=== PATIENT | male | born 1955 | race Caucasian/White ===

== ENCOUNTER 2017-03-17 14:31 | Emergency (ER) | payer SELFPAY ==
[2017-03-17 14:34] VITALS: BMI 25.5
[2017-03-17] MEDS ORDERED: ADACEL TDaP IM ONE ×2 (14:36→14:53)
[2017-03-17] MEDS ORDERED: NS 1000 ML 1,000 ML IV ONE (14:46)
[2017-03-17] MEDS ORDERED: ANCEF VIAL 1 GM IV ONE (14:47)
--- NOTE | 2017-03-17 14:49 | DR.GENAD ---
HPI - PCP Primary Care Physician: NFD - HPI Comment HPI Comment: RT 5TH FINGER AMPUTATION SUSTAIN BEFORE COMING.TD NOT UTD. REST HISTORY BELOW. - Complaint/Symptoms Chief Complaint Doctors Comments: RT 5TH FINGER AMPUTATION. Chief Complaint:: PT C/O RT 5TH DIGIT HAS BEEN RIPPED OFF BY A BELT ON THE COMPRESSOR. PT HAS BROUGHT THE REST OF HIS FINGER WITH HIM. - Nurses notes reviewed Nurses Notes Review: Yes - Source History Provided: Patient - Mode of Arrival Mode of Arrival: Ambulatory - Timing Onset of Chief Complaint: 03/17/17 Came on: Suddenly - Duration Duration: Constant Duration: Hours - Severity Severity: Moderate PMH - PMH Past Medical History: No Past Surgical History: Yes Surgical History: Appendectomy - Family History History of Family Medical Conditions: No - Social History Does any household member use tobacco: No Alcohol Use: None Do you use any recreational Drugs:: No Lives With: Family Lives Where: Home - infectious screening In the last 2 months have you had wt loss of >10#?: NO Have you had fever, night sweats or hemotysis?: No Have you traveled outside the country in the last 6 months?: No Isolation: Standard ROS - Review of Systems Constitutional: No Symptoms Reported Eyes: No Symptoms Reported ENTM: No Symptoms Reported Respiratoy: No Symptoms Reported Cardiovascular: No Symptoms Reported Gastrointestinal/Abdominal: No Symptoms Reported Genitourinary: No Symptoms Reported Neurological: No Symptoms Reported Musculoskeletal: No Symptoms Reported Integumentary: Other (AMPUTATION DISTAL 5TH RT FINGER.) Hematologic/Lymphatic: No Symptoms Reported Endocrine: No Symptoms Reported All Other Systems: Reviewed and Negative PE - Vital Signs Vitals: Temperature 98.0 F Pulse Rate 74 Respiratory Rate 18 Blood Pressure 156/96 O2 Sat by Pulse Oximetry 97 - General Limitations: No Limitations General Appearance: Alert - Head Head Exam: Normal Inspection - Eyes Eye exam: Normal Appearance - ENT ENT Exam: Normal External Ear Exam TM/Canal Exam: Bilateral Normal Nose Exam: Normal Nose Exam Mouth Exam: Normal Inspection Throat Exam: Normal Inspection - Neck Neck Exam: Normal Inspection - Chest Chest Inspection: Symmetric Chest Wall Rise - Respiratory Respiratory Exam: Normal Lung Sounds Bilat Respiratory Exam: Bilateral Clear to Auscultation - Cardiovascular Cardiovascular Exam: Regular Rate, Normal Rhythm, Normal Heart Sounds - Abdominal Exam Abdominal Exam: Normal Bowel Sounds, Soft. negative: Tenderness - Extremities Extremities Exam: Tenderness (DISTAL RT 5TH FINGER AMPUTATION) - Back Back Exam: Normal Inspection - Neurologic Neurological Exam: Alert, Oriented X3 - Psychiatric Psychiatric Exam: Normal Affect, Normal Mood - Skin Skin Exam: Erythema MDM - Additional Information Additional Information Obtained From: Family - Differential Diagnosis Differential Diagnosis: AMPUTATION RT 5TH FINGER, FRACTURE RT 5TH FINGER. Course - Treatment Treatment: SEE ORDERS. - Consultation Consultation Comments: DISCUSS PATIENT WITH DR. HADLEY. HE IS IN ED EVALUATING PATIENT. HE WILL TAKE TO OR TO REPAIR INJURY. - Education/Counseling Education/Counseling: Patient, Family, Education Educated On: Diagnosis ROR - Labs Reviewed Laboratory Results Reviewed?: Yes Result Diagrams: 03/17/17 16:13 03/17/17 16:13 Laboratory: 03/17/17 18:54 Finger - Right Pinky Gram Stain - Final 03/17/17 18:54 Finger - Right Pinky Wound Culture - Final WBC 7.6 X10^3/uL (3.6-10.0) 03/17/17 16:13 RBC 4.59 X10^6/uL (4.7-6.0) L 03/17/17 16:13 Hgb 13.7 g/dL (13.5-18.0) 03/17/17 16:13 Hct 39.3 % (42.0-54.0) L 03/17/17 16:13 MCV 85.6 fL (80.0-100.0) 03/17/17 16:13 MCH 29.9 pg (27.0-34.0) 03/17/17 16:13 MCHC 34.9 g/dL (33.0-35.0) 03/17/17 16:13 RDW 13.4 % (11.6-16.5) 03/17/17 16:13 Plt Count 248 X10^3/uL (150.0-450.0) 03/17/17 16:13 MPV 7.5 fL (7.4-11.0) 03/17/17 16:13 Neut % 74.0 % (42.0-75.0) 03/17/17 16:13 Lymph % 12.1 % (21.0-51.0) L 03/17/17 16:13 [place] % 9.8 % (0.0-13.0) 03/17/17 16:13 Eos % 3.7 % (0.9-2.9) H 03/17/17 16:13 Baso % 0.4 % (0.2-1.0) 03/17/17 16:13 Neut # 5.7 x10^3/uL (2.2-4.8) H 03/17/17 16:13 Lymph # 0.9 X10^3/uL (1.3-2.9) L 03/17/17 16:13 [place] # 0.7 x10^3/uL (0.3-0.8) 03/17/17 16:13 Eos # 0.3 x10^3/uL (0.0-0.2) H 03/17/17 16:13 Baso # 0.0 X10^3/uL (0.0-0.1) 03/17/17 16:13 Absolute Nucleated RBC 0.0 /100WBC 03/17/17 16:13 Sodium 138 mmol/L (136-145) 03/17/17 16:13 Corrected Sodium TNP 03/17/17 16:13 Potassium 3.7 mmol/L (3.5-5.1) 03/17/17 16:13 Chloride 106 mmol/L (98-107) 03/17/17 16:13 Carbon Dioxide 23.8 mmol/L (21-32) 03/17/17 16:13 BUN 18 mg/dL (7-18) 03/17/17 16:13 Creatinine 0.78 mg/dL (0.70-1.30) 03/17/17 16:13 Est GFR (MDRD) Af Amer > 60 (>60) 03/17/17 16:13 Est GFR (MDRD) Non-Af > 60 (>60) 03/17/17 16:13 Glucose 100 mg/dL (65-99) H 03/17/17 16:13 Calcium 8.6 mg/dL (8.5-10.1) 03/17/17 16:13 Corrected Calcium TNP 03/17/17 16:13 Total Bilirubin 0.40 mg/dL (0.2-1.0) 03/17/17 16:13 AST 14 Units/L (15-37) L 03/17/17 16:13 ALT 27 Units/L (12-78) 03/17/17 16:13 Alkaline Phosphatase 60 Units/L (46-116) 03/17/17 16:13 Total Protein 6.9 g/dL (6.4-8.2) 03/17/17 16:13 Albumin 3.6 g/dL (3.4-5.0) 03/17/17 16:13 Globulin 3.3 g/dL (2.5-4.5) 03/17/17 16:13 Albumin/Globulin Ratio 1.1 Ratio (1.1-2.1) 03/17/17 16:13 - XRAY XRAY Interpreted by: Radiologist XRAY Findings: REPORT DISCUSS WITH PATIENT AND . - EKG Rhythm: NSR (EKG NOTED) - Diagnosis Discharge Problem: Finger near amputation, right Open fracture of finger Qualifiers: Encounter type: initial encounter Finger: little finger Phalanx: distal Fracture alignment: displaced Laterality: right Qualified Code(s): S62.636B - Displaced fracture of distal phalanx of right little finger, initial encounter for open fracture - Discharge Plan Disposition: XFER OTHER Condition: Stable - Follow ups/Referrals Follow ups/Referrals: NFD,None [STAFF PHYSICIAN] - 3 days - Instructions Instructions: Incision Care, Bcap-iy-Txae Additional Instructions: RETURN TO DR. HADLEY ON TUESDAY LEAVE DRESSING INTACT. KEEP DRESSING CLEAN AND DRY. TAKE PAIN MEDS DIRECTED TAKE ANTIBIOTICS DIRECTED.
[2017-03-17] MEDS ORDERED: NS 1000 ML 1,000 ML ONE ×2 (15:04→16:45)
[2017-03-17] MEDS ORDERED: NS 50 ML IV + SPIKE MINIBAG* 50 ML IV ONE (15:06)
[2017-03-17] MEDS ORDERED: ANCEF VIAL 1 GM ONE (15:06)
[2017-03-17] MEDS ORDERED: ZOFRAN INJ 4 MG VIAL ONE (15:08)
[2017-03-17] MEDS ORDERED: MORPHINE SULFATE INJ 4 MG ONE (15:09)
[2017-03-17] MEDS ORDERED: ZOFRAN INJ 4 MG VIAL IVP ONE (15:37)
[2017-03-17] MEDS ORDERED: MORPHINE SULFATE INJ 4 MG IVP ONE (15:37)
--- NOTE | 2017-03-17 15:45 | RAD ---
Right hand 3 views Indication: Right little finger laceration. Findings: There is metal foreign body adjacent to the thumb proximal phalanx. Amputation of the tip o f the right little finger noted, with portion of the phalangeal tuft amputated and fracture of the di stal aspect of the phalanx as well. Remaining bones are intact. Impression: Laceration partial amputation of the right little finger tip, with a piece of the phalang eal tuft AP dated. There is also fracture of the distal phalanx, minimally displaced. Reported By:
[2017-03-17 16:22] LABS: BASOPHILS % (AUTO) 0.4 % (0.2-1.0); EOSINOPHILS # (AUTO) 0.3 x10^3/uL (0.0-0.2); EOSINOPHILS % (AUTO) 3.7 % (0.9-2.9); HEMATOCRIT 39.3 % (42.0-54.0); HEMOGLOBIN 13.7 g/dL (13.5-18.0); LYMPHOCYTES # (AUTO) 0.9 X10^3/uL (1.3-2.9); LYMPHOCYTES % (AUTO) 12.1 % (21.0-51.0); MEAN CORPUSCULAR HEMOGLOBIN 29.9 pg (27.0-34.0); MEAN CORPUSCULAR HGB CONC 34.9 g/dL (33.0-35.0); MEAN CORPUSCULAR VOLUME 85.6 fL (80.0-100.0); MEAN PLATELET VOLUME 7.5 fL (7.4-11.0); MONOCYTES # (AUTO) 0.7 x10^3/uL (0.3-0.8); MONOCYTES % (AUTO) 9.8 % (0.0-13.0); NEUTROPHILS # (AUTO) 5.7 x10^3/uL (2.2-4.8); PLATELET COUNT 248 X10^3/uL (150.0-450.0); RED BLOOD COUNT 4.59 X10^6/uL (4.7-6.0); RED CELL DISTRIBUTION WIDTH 13.4 % (11.6-16.5); WHITE BLOOD COUNT 7.6 X10^3/uL (3.6-10.0)
[2017-03-17 16:32] LABS: ALANINE AMINOTRANSFERASE 27 Units/L (12-78); ALBUMIN 3.6 g/dL (3.4-5.0); ALKALINE PHOSPHATASE 60 Units/L (46-116); ASPARTATE AMINO TRANSFERASE 14 Units/L (15-37); BLOOD UREA NITROGEN 18 mg/dL (7-18); CALCIUM 8.6 mg/dL (8.5-10.1); CARBON DIOXIDE 23.8 mmol/L (21-32); CHLORIDE 106 mmol/L (98-107); CREATININE 0.78 mg/dL (0.70-1.30); SODIUM 138 mmol/L (136-145); TOTAL PROTEIN 6.9 g/dL (6.4-8.2); eGFR BLACK RACES > 60 (>60); eGFR NON BLACK RACES > 60 (>60)
[2017-03-17] MEDS ORDERED: BACTROBAN OINT ONE (16:34)
[2017-03-17] MEDS ORDERED: BACITRACIN VIAL ONE (16:34)
--- NOTE | 2017-03-17 16:40 | RAD ---
HISTORY: Preop finger repair Study: AP upright chest Comparison: None Findings: The heart is enlarged. No congestive heart failure is noted. No acute alveolar infiltrates or pleural effusions are identified. There is minimal subsegmental atelectasis in the right lung base. IMPRESSION: Cardiomegaly without congestive heart failure Minimal subsegmental atelectasis right lung base Reported By:
[2017-03-17] MEDS ORDERED: XYLOCAINE 2 % (PLAIN) ONE (17:01)
[2017-03-17] MEDS ORDERED: MARCAINE 0.25% INJ ONE (17:01)
[2017-03-17] MEDS ORDERED: NS IRRIGATION 1000 ML 1,000 ML with BACITRACIN VIAL 50,000 UNT IR ONE ×2 (17:40)
[2017-03-17] MEDS ORDERED: PERCOCET TAB 5/325 MG PO PRN (18:25)
[2017-03-17] MEDS ORDERED: ZOFRAN INJ 4 MG VIAL IVP PRN (18:25)
[2017-03-17 19:05] VITALS: BP 156/96
== END 2017-03-17 17:30 | disposition short-term general hospital (02) ==
LOC: ER 14:47
PROC: 0X6V0Z0 Detachment at Right Little Finger, Complete, Open Approach (ICD-10-PCS; principal; 2017-03-17 16:30)
DX: S68.616A Complete traumatic transphalangeal amputation of right little finger, initial encounter (principal); S62.636B Displaced fracture of distal phalanx of right little finger, initial encounter for open fracture; W45.8XXA Other foreign body or object entering through skin, initial encounter; Y92.9 Unspecified place or not applicable
CPT/HCPCS: 36415; 71010; 73130; 80053; 85025; 87070; 87075; 87205; 90471; 93005; 93010; 96365; 96374; 96375; 99283; A4222; S0020; J0690; J2001; J2270; J2405

== ENCOUNTER 2025-02-04 16:27 | Inpatient (IN) ==
[2025-02-04] MEDS: ASPIRIN PO ONE (16:48)
[2025-02-04] MEDS: CARDIZEM INJ 50 MG VIAL IVP ONE ×3 (16:50→17:00)
--- NOTE | 2025-02-04 16:50 | EKG ---
Test Reason : afib Blood Pressure : */* mmHG Vent. Rate : 144 BPM Atrial Rate : * BPM P-R Int : * ms QRS Dur : 78 ms QT Int : 300 ms P-R-T Axes : * -45 53 degrees QTc Int : 464 ms Atrial fibrillation with rapid ventricular response Left axis deviation Anterior infarct , age undetermined Abnormal ECG No previous ECGs available Confirmed by Pascual Redding MD ([id number]) on 02/05/2025 11:52:57 AM Referred By: Confirmed By: Pascual Redding MD
[2025-02-04] MEDS ORDERED: NS 1,000 ML IV 1,000 ML ONE (16:55)
[2025-02-04] MEDS: NS 1,000 ML IV 1,000 ML IV ONE (17:00)
[2025-02-04 17:02] LABS: MEAN PLATELET VOLUME 9.1 fL (7.4-11.0); RED CELL DISTRIBUTION WIDTH 13.9 % (11.6-16.5)
[2025-02-04] MEDS: LOPRESSOR INJ 5 MG AMP IVP ONE (17:13)
[2025-02-04 17:14] LABS: COR NA(FOR HYPERGLY) 139 mmol/L (136-145); CREATININE 0.75 mg/dL (0.70-1.30); eGFR NON BLACK RACES > 60 (>60)
[2025-02-04 17:22] LABS: INR 1.04 (0.8-1.3)
--- NOTE | 2025-02-04 17:44 | DR.CP ---
HPI Time Seen Time Seen by Provider: 02/04/25 17:37 PCP Primary Care Physician: Velasquez HPI Comment HPI Comment: Patient went to his PCP, Dr. Eng, today due to shortness of breath coughing since yesterday. Patient states that feeling is difficult to describe. Denies pain. Described palpitations at this time. Patient had EKG in office that revealed A-fib with RVR and was sent to the ER. Complaint Chief Complaint:: Patient states he went to his MD because coughing and SOB onset yesterday. He denies pain. His EKG at MD office revealed Afib with RVR. COVID-19 Coronavirus risk:travel/contact w/high risk person: No Has patient experienced Coronavirus symptoms: No Source History Provided: Patient and Significant Other Mode of Arrival Mode of Arrival: Ambulatory Timing Onset of Chief Complaint: 02/03/25 PMH PMH Past Medical History: Yes Past Medical History: Hypertension Past Medical History Comment: Atrial Flutter Past Surgical History: Yes Surgical History: Appendectomy and Other Family History History of Family Medical Conditions: Yes Family Medical History: Diabetes Mellitus, Coronary Artery Disease and Hypertension Social History Does patient currently use any type of tobacco product: No Have you used tobacco products in the last 12 months: No Type of Tobacco Use: None Does any household member use tobacco: No Alcohol Use: None Do you use any recreational Drugs:: No Lives With: Spouse Lives Where: Home Travel Risk Coronavirus risk:travel/contact w/high risk person: No Has patient experienced Coronavirus symptoms: No Infectious screening In the last 2 months have you had wt loss of >10#?: NO Have you had fever, night sweats or hemotysis?: No Have you traveled outside the country in the last 6 months?: No Isolation: Standard ROS Review of Systems Constitutional: No Symptoms Reported Eyes: No Symptoms Reported ENTM: No Symptoms Reported Respiratoy: No Symptoms Reported and Non-Productive Cough; negative Short of Breath or Wheezing Cardiovascular: See HPI and Palpitations; negative Chest Pain, Edema or Syncope Gastrointestinal/Abdominal: No Symptoms Reported Genitourinary: No Symptoms Reported Neurological: No Symptoms Reported; negative Headache, Numbness, Paresthesia, Seizure, Tingling, Weakness, Dizziness, Problems Walking or Speech Problem Musculoskeletal: No Symptoms Reported Integumentary: No Symptoms Reported Hematologic/Lymphatic: No Symptoms Reported Endocrine: No Symptoms Reported Psychiatric: No Symptoms Reported All Other Systems: Reviewed and Negative PE Vitals Vitals: Vital Signs Temperature 98.8 F Pulse Rate 143 Pulse Rate 130 Pulse Rate 146 Pulse Rate 133 Pulse Rate 147 Pulse Rate 149 Pulse Rate 149 Pulse Rate 135 Pulse Rate 150 Pulse Rate 152 Pulse Rate 146 Pulse Rate 144 Pulse Rate 133 Pulse Rate 144 Pulse Rate 142 Pulse Rate 148 Pulse Rate 137 Pulse Rate 139 Pulse Rate 142 Pulse Rate 150 Pulse Rate 140 Pulse Rate 137 Pulse Rate 128 Pulse Rate 143 Pulse Rate 146 Pulse Rate 138 Pulse Rate 139 Pulse Rate 132 Pulse Rate 132 Pulse Rate 135 Pulse Rate 131 Pulse Rate 132 Pulse Rate 141 Pulse Rate 120 Pulse Rate 133 Pulse Rate 138 Pulse Rate 150 Pulse Rate 152 Pulse Rate 157 Pulse Rate 152 Pulse Rate 152 Pulse Rate 153 Pulse Rate 161 Pulse Rate 171 Pulse Rate 167 Respiratory Rate 30 Respiratory Rate 35 Respiratory Rate 35 Respiratory Rate 36 Respiratory Rate 38 Respiratory Rate 32 Respiratory Rate 41 Respiratory Rate 30 Respiratory Rate 33 Respiratory Rate 32 Respiratory Rate 41 Respiratory Rate 35 Respiratory Rate 32 Respiratory Rate 37 Respiratory Rate 29 Respiratory Rate 34 Respiratory Rate 31 Respiratory Rate 33 Respiratory Rate 38 Respiratory Rate 31 Respiratory Rate 38 Respiratory Rate 37 Respiratory Rate 35 Respiratory Rate 32 Respiratory Rate 32 Respiratory Rate 32 Respiratory Rate 32 Respiratory Rate 31 Respiratory Rate 37 Respiratory Rate 48 Respiratory Rate 33 Respiratory Rate 27 Respiratory Rate 34 Respiratory Rate 33 Respiratory Rate 34 Respiratory Rate 39 Respiratory Rate 33 Respiratory Rate 33 Respiratory Rate 33 Respiratory Rate 16 Respiratory Rate 31 Respiratory Rate 16 Blood Pressure 91/73 Blood Pressure 109/78 Blood Pressure 94/61 Blood Pressure 114/75 Blood Pressure 134/79 Blood Pressure 138/70 Blood Pressure 108/80 Blood Pressure 114/69 Blood Pressure 113/89 Blood Pressure 104/80 Blood Pressure 102/87 Blood Pressure 107/85 Blood Pressure 117/94 Blood Pressure 146/82 Blood Pressure 113/86 Blood Pressure 89/67 Blood Pressure 99/79 Blood Pressure 116/75 Blood Pressure 121/81 Blood Pressure 125/90 Blood Pressure 110/80 Blood Pressure 109/86 Blood Pressure 118/95 Blood Pressure 116/91 Blood Pressure 108/80 Blood Pressure 140/85 Blood Pressure 140/85 Blood Pressure 142/94 Blood Pressure 138/100 Blood Pressure 129/87 Blood Pressure 149/109 Blood Pressure 149/109 O2 Sat by Pulse Oximetry 93 O2 Sat by Pulse Oximetry 95 O2 Sat by Pulse Oximetry 90 O2 Sat by Pulse Oximetry 90 O2 Sat by Pulse Oximetry 90 O2 Sat by Pulse Oximetry 91 O2 Sat by Pulse Oximetry 92 O2 Sat by Pulse Oximetry 87 O2 Sat by Pulse Oximetry 92 O2 Sat by Pulse Oximetry 97 O2 Sat by Pulse Oximetry 94 O2 Sat by Pulse Oximetry 93 O2 Sat by Pulse Oximetry 88 O2 Sat by Pulse Oximetry 91 O2 Sat by Pulse Oximetry 91 O2 Sat by Pulse Oximetry 93 O2 Sat by Pulse Oximetry 94 O2 Sat by Pulse Oximetry 93 O2 Sat by Pulse Oximetry 94 O2 Sat by Pulse Oximetry 93 O2 Sat by Pulse Oximetry 92 O2 Sat by Pulse Oximetry 93 O2 Sat by Pulse Oximetry 91 O2 Sat by Pulse Oximetry 95 O2 Sat by Pulse Oximetry 95 O2 Sat by Pulse Oximetry 96 O2 Sat by Pulse Oximetry 99 O2 Sat by Pulse Oximetry 94 O2 Sat by Pulse Oximetry 96 O2 Sat by Pulse Oximetry 98 O2 Sat by Pulse Oximetry 91 O2 Sat by Pulse Oximetry 93 O2 Sat by Pulse Oximetry 95 O2 Sat by Pulse Oximetry 98 O2 Sat by Pulse Oximetry 93 O2 Sat by Pulse Oximetry 93 O2 Sat by Pulse Oximetry 93 O2 Sat by Pulse Oximetry 91 O2 Sat by Pulse Oximetry 92 O2 Sat by Pulse Oximetry 89 O2 Sat by Pulse Oximetry 93 O2 Sat by Pulse Oximetry 96 O2 Sat by Pulse Oximetry 95 O2 Sat by Pulse Oximetry 97 General Limitations: No Limitations General Appearance: Alert and In No Apparent Distress Head Head Exam: Normal Inspection Eyes Eye exam: Normal Appearance Chest Chest Inspection: Normal Inspection Respiratory Respiratory Exam: Normal Lung Sounds Bilat Cardiovascular Cardiovascular Exam: Tachycardia and Irregular Rhythm Edema: Normal Abdominal Exam Abdominal Exam: Normal Inspection, Normal Bowel Sounds and Soft Extremities Extremities Exam: Normal Inspection Back Back Exam: Normal Inspection Neurologic Neurological Exam: Alert and Oriented X3 Psychiatric Psychiatric Exam: Normal Affect and Normal Mood Skin Skin Exam: Warm, Dry, Intact and Normal Color COURSE Treatment Treatment: Patient's rate improved with Cardizem and Lopressor. Patient currently on Cardizem drip but had his blood pressure has gotten a little low so we are holding at current rate. Patient denies any shortness of breath. Patient states he feels well at this time. His rate does increase when he moves around too much or talks too much. Discussed need for admission and patient is agreeable Consultation Consultation Comments: Discussed case with Dr. Robbins and he is agreeable to admission. Critical Care Notes Total Time (mins): 72 Critical Diagnosis: A-fib with RVR Critical Interventions: 3 doses of Cardizem, 3 doses of Lopressor. IV fluids were administered. ROR Labs Reviewed Laboratory Results Reviewed?: Yes 02/04/25 16:49 02/04/25 16:49 Laboratory: WBC 8.5 X10^3/uL (3.6-10.0) 02/04/25 16:49 RBC 4.67 X10^6/uL (4.7-6.0) L 02/04/25 16:49 Hgb 13.3 g/dL (13.5-18.0) L 02/04/25 16:49 Hct 40.3 % (42.0-54.0) L 02/04/25 16:49 MCV 86.3 fL (80.0-100.0) 02/04/25 16:49 MCH 28.5 pg (27.0-34.0) 02/04/25 16:49 MCHC 33.0 g/dL (33.0-35.0) 02/04/25 16:49 RDW 13.9 % (11.6-16.5) 02/04/25 16:49 Plt Count 285 X10^3/uL (150.0-450.0) 02/04/25 16:49 MPV 9.1 fL (7.4-11.0) 02/04/25 16:49 Neut % (Auto) 64.7 % (42.0-75.0) 02/04/25 16:49 Lymph % (Auto) 21.0 % (21.0-51.0) 02/04/25 16:49 [place] % (Auto) 12.0 % (0.0-13.0) 02/04/25 16:49 Eos % (Auto) 1.6 % (0.9-2.9) 02/04/25 16:49 Baso % (Auto) 0.7 % (0.2-1.0) 02/04/25 16:49 Neut # (Auto) 5.5 x10^3/uL (2.2-4.8) H 02/04/25 16:49 Lymph # (Auto) 1.8 X10^3/uL (1.3-2.9) 02/04/25 16:49 [place] # (Auto) 1.0 x10^3/uL (0.3-0.8) H 02/04/25 16:49 Eos # (Auto) 0.1 x10^3/uL (0.0-0.2) 02/04/25 16:49 Baso # (Auto) 0.1 X10^3/uL (0.0-0.1) 02/04/25 16:49 Absolute Nucleated RBC 0.1 /100WBC 02/04/25 16:49 PT 13.7 SECONDS (11.8-14.3) 02/04/25 16:49 INR Target Range - 02/04/25 16:49 INR 1.04 (0.8-1.3) 02/04/25 16:49 Sodium 138 mmol/L (136-145) 02/04/25 16:49 Corrected Sodium 139 mmol/L (136-145) 02/04/25 16:49 Potassium 3.9 mmol/L (3.5-5.1) 02/04/25 16:49 Chloride 105 mmol/L (98-107) 02/04/25 16:49 Carbon Dioxide 25.4 mmol/L (21-32) 02/04/25 16:49 BUN 14 mg/dL (7-18) 02/04/25 16:49 Creatinine 0.75 mg/dL (0.70-1.30) 02/04/25 16:49 Est GFR (MDRD) Af Amer > 60 (>60) 02/04/25 16:49 Est GFR (MDRD) Non-Af > 60 (>60) 02/04/25 16:49 Glucose 122 mg/dL (65-99) H 02/04/25 16:49 Calcium 8.5 mg/dL (8.5-10.1) 02/04/25 16:49 Corrected Calcium TNP 02/04/25 16:49 Magnesium 2.0 mg/dL (2.0-2.9) 02/04/25 16:49 Total Bilirubin 0.70 mg/dL (0.2-1.0) 02/04/25 16:49 AST 31 Units/L (15-37) 02/04/25 16:49 ALT 73 Units/L (12-78) 02/04/25 16:49 Alkaline Phosphatase 82 Units/L (46-116) 02/04/25 16:49 Creatine Kinase 79 Units/L (39-308) 02/04/25 16:49 Troponin I High Sens 26.5 ng/L (4.0-60.0) 02/04/25 18:49 B-Natriuretic Peptide 209 pg/mL (0-79) H 02/04/25 16:49 Total Protein 7.3 g/dL (6.4-8.2) 02/04/25 16:49 Albumin 3.8 g/dL (3.4-5.0) 02/04/25 16:49 Globulin 3.5 g/dL (2.5-4.5) 02/04/25 16:49 Albumin/Globulin Ratio 1.1 Ratio (1.1-2.1) 02/04/25 16:49 XRAY X-ray Results: Name: CK GA JR : 1955 Sex: M Location: ER Order Number(s): [id number] Procedure(s):CHEST, 1 VIEW X-RAY Ordering Physician: Davey Enriquez Primary Care: Mark Eng Service Date: 02/04/25 Service Time: 164 EXAM: CHEST, 1 VIEW HISTORY: Patient states he went to his MD because coughing and SOB onset yesterday. He denies pain. His EKG at MD office revealed Afib with RVR.; COMPARISON: Chest radiograph from March 17, 2017 TECHNIQUE: Chest radiographic imaging, AP portable projection, 1 image FINDINGS: Mild cardiomegaly. Mild increased interstitial markings centered on the [place]. No focal airspace disease. No pleural effusion. No pneumothorax. No acute osseous abnormality. Small calcified nodule in the periphery of the left mid lung, as seen on the previous exam, consistent with the sequela of a previous granulomatous infection. IMPRESSION: Findings could represent acute cardiogenic edema. No focal consolidation. THIS IS AN ELECTRONICALLY VERIFIED FINAL REPORT 02/04/2025 8:27 PM - Electronically signed by Jose Luis Mina MD EKG Rate: 144 [place]: LAD Rhythm: Afib ST: Normal Opioid Opioid Risk Tool Age (Curry box if 16-45): No History of Preadolescent Sexual Abuse: No Total: 0 Total Score Risk Category: Low Risk Copyright: Vaibhav PRADO predicting aberrant behaviors Discharge Plan Diagnosis Discharge Problem: Atrial fibrillation with RVR Discharge Plan Patient Disposition: ADMITTED INPATIENT Condition: Stable Prescriptions: No Action amlodipine 5 mg tablet 5 mg PO QDAY Health Concerns: Post Hospitalization: new medications and changes needed to prevent readmission or further decline. Pt educated and given instructions on all concerns. Plan of Treatment: Continue with present treatment and follow up plan. Pt is to keep follow up appointment as instructed and take medications as ordered. Orders to Discharge Patient Discharge Orders: Transfer (Routine); Ordered 02/04/25 Ordered By: Davey Enriquez Follow ups/Referrals Follow ups/Referrals: Mark Eng [Primary Care Provider, MEDICAL] - 3 days Instructions Stand Alone Forms: Find Help Web Site, Post Hospital Follow Up Care Print Language: MACEDONIAN
[2025-02-04] MEDS: CARDIZEM INJ 125 MG VIAL 125 MG in NS 100 ML IV 100 ML IV PRN (18:16)
--- NOTE | 2025-02-04 20:30 | RAD ---
EXAM: CHEST, 1 VIEW HISTORY: Patient states he went to his MD because coughing and SOB onset yesterday. He denies pain. His EKG at MD office revealed Afib with RVR.; COMPARISON: Chest radiograph from March 17, 2017 TECHNIQUE: Chest radiographic imaging, AP portable projection, 1 image FINDINGS: Mild cardiomegaly. Mild increased interstitial markings centered on the [place]. No focal airspace disease. No pleural effusion. No pneumothorax. No acute osseous abnormality. Small calcified nodule in the periphery of the left mid lung, as seen on the previous exam, consistent with the sequela of a previous granulomatous infection. IMPRESSION: Findings could represent acute cardiogenic edema. No focal consolidation. THIS IS AN ELECTRONICALLY VERIFIED FINAL REPORT 02/04/2025 8:27 PM - Electronically signed by Jose Luis Mina MD
[2025-02-04] MEDS ORDERED: ULTRAM PO PRN (23:55)
[2025-02-04] MEDS ORDERED: ZOFRAN INJ 4 MG VIAL IVP PRN (23:55)
[2025-02-04] MEDS ORDERED: TYLENOL 325 MG TAB PO PRN (23:55)
[2025-02-04] MEDS ORDERED: MORPHINE SULFATE INJ 2 MG INJ IVP PRN (23:55)
[2025-02-04] MEDS ORDERED: NORCO 5/325 MG TAB PO PRN (23:55)
[2025-02-05 00:24] VITALS: BMI 26.1
[2025-02-05] MEDS: NS 1,000 ML IV 1,000 ML IV SCH (00:53)
[2025-02-05] MEDS: NS 1,000 ML IV 1,000 ML ONE (00:58)
[2025-02-05] MEDS: LOPRESSOR INJ 5 MG AMP ONE (05:15)
[2025-02-05] MEDS: CARDIZEM INJ 50 MG VIAL ONE (05:15)
[2025-02-05] MEDS: NS 100 ML IV 100 ML ONE (05:16)
[2025-02-05] MEDS: CARDIZEM INJ 125 MG VIAL ONE (05:16)
[2025-02-05] MEDS: CONSULT PHARMACY - POTASSIUM & MAGNESIUM XX SCH (05:17)
[2025-02-05 05:46] LABS: MEAN PLATELET VOLUME 9.2 fL (7.4-11.0); RED CELL DISTRIBUTION WIDTH 13.7 % (11.6-16.5)
[2025-02-05 06:06] LABS: COR CA(FOR HYPOALB) 8.8 mg/dL (8.5-10.1); CREATININE 0.65 mg/dL (0.70-1.30); eGFR NON BLACK RACES > 60 (>60)
--- NOTE | 2025-02-05 08:04 | EKG ---
Test Reason : Afib RVR Blood Pressure : */* mmHG Vent. Rate : 78 BPM Atrial Rate : * BPM P-R Int : * ms QRS Dur : 76 ms QT Int : 388 ms P-R-T Axes : * -44 78 degrees QTc Int : 442 ms Atrial fibrillation with premature ventricular or aberrantly conducted complexes Left axis deviation Low voltage QRS Inferior infarct , age undetermined Cannot rule out Anterior infarct (cited on or before 04-FEB-2025) Abnormal ECG When compared with ECG of 04-FEB-2025 16:45, (Unconfirmed) Vent. rate has decreased BY 66 BPM Nonspecific T wave abnormality, worse in Lateral leads Confirmed by Yan Christina ([id number]) on 02/05/2025 8:10:38 AM Referred By: Confirmed By: Yan Christina
[2025-02-05 08:41] VITALS: TEMP 97.6
[2025-02-05] MEDS: LOPRESSOR TAB 50 MG PO SCH (08:48)
[2025-02-05] MEDS: ELIQUIS PO SCH (08:48)
[2025-02-05 09:08] LABS: TSH (3RD GENERATION) 2.292 uIU/mL (0.358-3.74)
--- NOTE | 2025-02-05 10:06 | DR.H&P ---
H&P History & Physical for Day of: H&P Date: 02/05/25 Chief Complaint Chief Complaint: SOB History of Present Illness History of Present Illness: Patient is a 69-year-old male with a past medical history of hypertension, atrial flutter status post ablation presented with dyspnea and weakness. He was seen at primary care office and had an abnormal EKG concerning for atrial fibrillation with RVR. He was advised to go to the ER. ER workup included troponins x 2 negative BNP 209, heart rate in the 130s. He received multiple doses of metoprolol tartrate and diltiazem. He was placed on diltiazem drip and admitted for further management in the ICU. He also had hypotension. He is feeling better this morning. He is currently on 2 L nasal cannula. He reports having ablation done in [place] couple years ago. He did not follow-up with cardiology after the procedure. He denies any history of CAD. Labs/imaging reviewed: - WBC 7.8 hemoglobin 12 platelet 230 potassium 4.2 creatinine 0.65 BNP 209 Normal thyroid panel - Trope x 2 negative - Chest x-ray: Pulmonary edema Plan: Continue to monitor in ICU, wean diltiazem drip as per protocol. Continue metoprolol to tartrate 100 mg twice daily. Continue Eliquis. Consult cardiology. Order echo. Wean O2 as tolerated. Replace electrolytes as per protocol. Stop IV fluids. Monitor heart rate and blood pressure closely. Monitor a.m. labs and imaging. Time spent for clinical assessment, reviewing labs/imaging, physical exam, decision making and documentation greater than 45 mins. Past Medical History Past Medical History: Hypertension Past Surgical History Surgical History: Appendectomy and Other Family History Family Medical History: Diabetes Mellitus, Cancer and Hypertension Social History Does patient currently use any type of tobacco product: No Have you used tobacco products in the last 12 months: No Type of Tobacco Use: None Does any household member use tobacco: No Alcohol Use: None Drug Use: None Medications Home Medications: Home Medications Medication Instructions Recorded Confirmed Type amlodipine 5 mg tablet 5 mg PO QDAY 02/04/25 History Allergies Allergies Allergy/AdvReac Type Severity Reaction Status Date / Time No Known Drug Allergies Allergy Verified 03/17/17 14:36 Labs 02/05/25 04:28 02/05/25 04:28 Labs: Laboratory WBC 7.8 X10^3/uL (3.6-10.0) 02/05/25 04:28 RBC 4.17 X10^6/uL (4.7-6.0) L 02/05/25 04:28 Hgb 12.0 g/dL (13.5-18.0) L 02/05/25 04:28 Hct 35.8 % (42.0-54.0) L 02/05/25 04:28 MCV 85.6 fL (80.0-100.0) 02/05/25 04:28 MCH 28.6 pg (27.0-34.0) 02/05/25 04:28 MCHC 33.4 g/dL (33.0-35.0) 02/05/25 04: RDW 13.7 % (11.6-16.5) 02/05/25 04:28 Plt Count 230 X10^3/uL (150.0-450.0) 02/05/25 04:28 MPV 9.2 fL (7.4-11.0) 02/05/25 04:28 Neut % (Auto) 61.2 % (42.0-75.0) 02/05/25 04:28 Lymph % (Auto) 23.9 % (21.0-51.0) 02/05/25 04:28 [place] % (Auto) 11.3 % (0.0-13.0) 02/05/25 04:28 Eos % (Auto) 3.1 % (0.9-2.9) H 02/05/25 04:28 Baso % (Auto) 0.5 % (0.2-1.0) 02/05/25 04:28 Neut # (Auto) 4.8 x10^3/uL (2.2-4.8) 02/05/25 04:28 Lymph # (Auto) 1.9 X10^3/uL (1.3-2.9) 02/05/25 04:28 [place] # (Auto) 0.9 x10^3/uL (0.3-0.8) H 02/05/25 04:28 Eos # (Auto) 0.2 x10^3/uL (0.0-0.2) 02/05/25 04:28 Baso # (Auto) 0.0 X10^3/uL (0.0-0.1) 02/05/25 04:28 Absolute Nucleated RBC 0.1 /100WBC 02/05/25 04:28 PT 13.7 SECONDS (11.8-14.3) 02/04/25 16:49 INR Target Range - 02/04/25 16:49 INR 1.04 (0.8-1.3) 02/04/25 16:49 Sodium 137 mmol/L (136-145) 02/05/25 04:28 Corrected Sodium TNP 02/05/25 04:28 Potassium 4.2 mmol/L (3.5-5.1) 02/05/25 04:28 Chloride 107 mmol/L (98-107) 02/05/25 04:28 Carbon Dioxide 24.2 mmol/L (21-32) 02/05/25 04:28 BUN 14 mg/dL (7-18) 02/05/25 04:28 Creatinine 0.65 mg/dL (0.70-1.30) L 02/05/25 04:28 Est GFR (MDRD) Af Amer > 60 (>60) 02/05/25 04:28 Est GFR (MDRD) Non-Af > 60 (>60) 02/05/25 04:28 Glucose 105 mg/dL (65-99) H 02/05/25 04:28 Calcium 7.9 mg/dL (8.5-10.1) L 02/05/25 04:28 Corrected Calcium 8.8 mg/dL (8.5-10.1) 02/05/25 04:28 Magnesium 2.0 mg/dL (2.0-2.9) 02/04/25 16:49 Total Bilirubin 0.50 mg/dL (0.2-1.0) 02/05/25 04:28 AST 28 Units/L (15-37) 02/05/25 04:28 ALT 56 Units/L (12-78) 02/05/25 04:28 Alkaline Phosphatase 67 Units/L (46-116) 02/05/25 04:28 Creatine Kinase 79 Units/L (39-308) 02/04/25 16:49 Troponin I High Sens 26.5 ng/L (4.0-60.0) 02/04/25 18:49 B-Natriuretic Peptide 209 pg/mL (0-79) H 02/04/25 16:49 Total Protein 5.9 g/dL (6.4-8.2) L 02/05/25 04:28 Albumin 2.9 g/dL (3.4-5.0) L 02/05/25 04:28 Globulin 3.0 g/dL (2.5-4.5) 02/05/25 04:28 Albumin/Globulin Ratio 1.0 Ratio (1.1-2.1) L 02/05/25 04:28 Free T4 1.22 ng/dL (0.76-1.46) 02/05/25 04:28 TSH 3rd Generation 2.292 uIU/mL (0.358-3.74) 02/05/25 04:28 Review of Systems Constitutional: Weakness Eyes: No Symptoms Reported ENT: No Symptoms Reported Respiratory: Cough and SOB with Excertion Cardiovascular: Orthopnea Gastrointestinal: No Symptoms Reported Genitourinary: No Symptoms Reported Musculoskeletal: No Symptoms Reported Skin: No Symptoms Reported Neurological: No Symptoms Reported Physical Exam Vital Signs: Vital Signs Temperature 97.6 F Temperature 97.6 F Temperature 97.8 F Pulse Rate 78 Pulse Rate 97 Pulse Rate 105 Pulse Rate 123 Pulse Rate 102 Pulse Rate 125 Pulse Rate 128 Pulse Rate 94 Pulse Rate 85 Pulse Rate 92 Pulse Rate 148 Pulse Rate 134 Pulse Rate 102 Pulse Rate 122 Pulse Rate 111 Pulse Rate 111 Pulse Rate 102 Pulse Rate 117 Pulse Rate 112 Pulse Rate 130 Pulse Rate 133 Pulse Rate 130 Pulse Rate 100 Pulse Rate 131 Pulse Rate 107 Pulse Rate 99 Pulse Rate 106 Pulse Rate 99 Pulse Rate 98 Pulse Rate 96 Pulse Rate 87 Pulse Rate 100 Pulse Rate 100 Pulse Rate 125 Pulse Rate 111 Pulse Rate 119 Pulse Rate 115 Pulse Rate 126 Respiratory Rate 29 Respiratory Rate 31 Respiratory Rate 30 Respiratory Rate 33 Respiratory Rate 36 Respiratory Rate 31 Respiratory Rate 20 Respiratory Rate 21 Respiratory Rate 22 Respiratory Rate 39 Respiratory Rate 35 Respiratory Rate 31 Respiratory Rate 32 Respiratory Rate 24 Respiratory Rate 24 Respiratory Rate 31 Respiratory Rate 29 Respiratory Rate 37 Respiratory Rate 32 Respiratory Rate 33 Respiratory Rate 32 Respiratory Rate 33 Respiratory Rate 40 Respiratory Rate 23 Respiratory Rate 22 Respiratory Rate 22 Respiratory Rate 22 Respiratory Rate 22 Respiratory Rate 22 Respiratory Rate 25 Respiratory Rate 27 Respiratory Rate 27 Respiratory Rate 31 Respiratory Rate 31 Respiratory Rate 39 Respiratory Rate 28 Respiratory Rate 28 Blood Pressure 112/84 Blood Pressure 105/69 Blood Pressure 104/62 Blood Pressure 98/59 Blood Pressure 98/59 Blood Pressure 106/68 Blood Pressure 106/68 Blood Pressure 88/63 Blood Pressure 88/63 Blood Pressure 93/63 Blood Pressure 93/63 Blood Pressure 98/71 Blood Pressure 98/71 O2 Sat by Pulse Oximetry 85 O2 Sat by Pulse Oximetry 86 O2 Sat by Pulse Oximetry 84 O2 Sat by Pulse Oximetry 94 O2 Sat by Pulse Oximetry 94 O2 Sat by Pulse Oximetry 87 O2 Sat by Pulse Oximetry 91 O2 Sat by Pulse Oximetry 87 O2 Sat by Pulse Oximetry 88 O2 Sat by Pulse Oximetry 92 O2 Sat by Pulse Oximetry 92 O2 Sat by Pulse Oximetry 87 O2 Sat by Pulse Oximetry 88 O2 Sat by Pulse Oximetry 89 O2 Sat by Pulse Oximetry 93 O2 Sat by Pulse Oximetry 93 O2 Sat by Pulse Oximetry 91 O2 Sat by Pulse Oximetry 92 O2 Sat by Pulse Oximetry 89 O2 Sat by Pulse Oximetry 91 O2 Sat by Pulse Oximetry 92 O2 Sat by Pulse Oximetry 91 O2 Sat by Pulse Oximetry 94 O2 Sat by Pulse Oximetry 89 O2 Sat by Pulse Oximetry 92 O2 Sat by Pulse Oximetry 88 O2 Sat by Pulse Oximetry 88 O2 Sat by Pulse Oximetry 88 O2 Sat by Pulse Oximetry 90 O2 Sat by Pulse Oximetry 93 O2 Sat by Pulse Oximetry 96 O2 Sat by Pulse Oximetry 97 O2 Sat by Pulse Oximetry 97 O2 Sat by Pulse Oximetry 93 O2 Sat by Pulse Oximetry 92 O2 Sat by Pulse Oximetry 75 O2 Sat by Pulse Oximetry 90 O2 Sat by Pulse Oximetry 92 Oriented: Normal Respiratory: RLL Rales and LLL Rales Cardiovascular: Irregular Auscultation: Bowel Sounds: Normal Palpation: Normal Tenderness: Normal Skin: Normal Musculoskeletal: Normal Psychiatric: Normal Mood Description: Calm Affect: Normal Speech Pattern: Clear and Appropriate Assessment/Plan (1) Atrial fibrillation with RVR: Status: Acute (2) Pulmonary edema: Qualifiers: Chronicity: acute Qualified Code(s): J81.0 - Acute pulmonary edema Status: Acute (3) HTN (hypertension): Qualifiers: Hypertension type: primary hypertension Qualified Code(s): I10 - Essential (primary) hypertension Status: Chronic (4) Dyspnea: Qualifiers: Dyspnea type: orthopnea Qualified Code(s): R06.01 - Orthopnea Status: Acute Review H&P Reviewed: Yes Patient was examined?: Yes
[2025-02-05] MEDS ORDERED: LASIX ONE (11:29)
[2025-02-05] MEDS: LASIX IVP ONE (11:30)
[2025-02-05 12:11] VITALS: O2SAT 96
[2025-02-05 14:46] VITALS: BP 101/72; PULSE 103; RESP 32
--- NOTE | 2025-02-05 15:52 | RAD ---
EXAM: CHEST, 1 VIEW HISTORY: SOB, A FIB; COMPARISON: 02/04/2025 TECHNIQUE: AP portable FINDINGS: Stable prominent cardiac silhouette, accentuated by AP technique. Pulmonary vascular engorgement. Hazy perihilar opacities. Layering small pleural effusions. No visible pneumothorax. IMPRESSION: Pulmonary edema with layering small pleural effusions. THIS IS AN ELECTRONICALLY VERIFIED FINAL REPORT 02/05/2025 3:49 PM - Electronically signed by Valentín Decker MD
== END 2025-02-05 15:00 | disposition short-term general hospital (02) | DRG 308 ==
LOC: ER 16:27 → ICU 23:09
PROVIDERS: ADMIT Obstetrics & Gynecology Obstetrics; ATTEND Internal Medicine